=== PATIENT | male | born 1990 ===

== ENCOUNTER 2017-02-23 14:50 | Emergency (ER) | payer OTHER ==
[2017-02-23 15:12] VITALS: BP 129/70; PULSE 59; RESP 16; TEMP 96.9; O2SAT 98
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
--- NOTE | 2017-02-24 12:08 | RAD ---
PROCEDURE: Cervical Spine Radiographs. HISTORY: Pain. COMPARISON: None. FINDINGS: BONES: Alignment maintained. No fracture. Dens Intact. DISC SPACES: Normal. SOFT TISSUES: Normal. No prevertebral soft tissue swelling. OTHER FINDINGS: None. IMPRESSION: No acute findings related to/accounting for the clinical presentation. No preliminary report provided by emergency department personnel.
--- NOTE | 2017-02-24 16:00 | RAD ---
PROCEDURE: Radiographs of the Lumbar Spine. HISTORY: trauma COMPARISON: No prior. FINDINGS: BONES: Normal alignment. No listhesis. No fracture. DISC SPACES: Unremarkable. OTHER FINDINGS: None. IMPRESSION: Unremarkable radiographs of the lumbar spine.
--- NOTE | 2017-02-24 16:20 | RAD ---
HISTORY: trauma COMPARISON: No prior. FINDINGS: BONES: A limited dextroscoliotic thoracic spinal deformity is appreciate without fracture or suspicious lytic or blastic change. DISC SPACES: Normal. SOFT TISSUES: Normal. OTHER FINDINGS: None. IMPRESSION: Limited dextroscoliotic thoracic spinal deformity with normal kyphosis appreciated. No suspicious lytic or blastic change. No fracture identified.
== END 2017-02-23 16:49 | disposition home or self-care (01) ==
LOC: H.ER 14:50
DX: S09.90XA Unspecified injury of head, initial encounter (principal); S33.5XXA Sprain of ligaments of lumbar spine, initial encounter; W19.XXXA Unspecified fall, initial encounter; Y93.55 Activity, bike riding

== ENCOUNTER 2018-02-24 12:20 | Emergency (ER) | payer MEDICAID, OTHER ==
[2018-02-24 12:33] VITALS: BP 138/89; PULSE 78; RESP 18; TEMP 98; O2SAT 99
--- NOTE | 2018-02-24 13:32 | ED PDOC ---
Upper Extremity Pain/Injury Time Seen by Provider: 02/24/18 12:43 Chief Complaint (Nursing): Finger,Hand,&Wrist Chief Complaint (Provider): hand pain History Per: Patient Additional Complaint(s): 27 year old right hand dominant male presents to the ED for evaluation of bilateral hand cramping and pain for the past few months. He denies any trauma or injury, he denies any repetitive motion with hands. No meds taken for pain relief. No associated numbness or tingling. PMD: none Past Medical History Reviewed: Historical Data, Nursing Documentation, Vital Signs Vital Signs: Last Vital Signs Temp 98 F 02/24/18 12:30 Pulse 78 02/24/18 12:30 Resp 18 02/24/18 12:30 BP 138/89 02/24/18 12:30 Pulse Ox 99 02/24/18 12:30 - Medical History PMH: No Chronic Diseases - Surgical History Surgical History: No Surg Hx - Family History Family History: States: No Known Family Hx - Living Arrangements Living Arrangements: With Family - Social History Current smoker - smoking cessation education provided: No Alcohol: None Drugs: Denies - Home Medications Home Medications: Ambulatory Orders Medication Instructions Recorded Cyclobenzaprine [Cyclobenzaprine 10 mg PO Q8 PRN #30 tab 02/23/17 HCl] - Allergies Allergies/Adverse Reactions: Allergies Allergy/AdvReac Type Severity Reaction Status Date / Time No Known Allergies Allergy Verified 02/23/17 15:10 Review of Systems ROS Statement: Except As Marked, All Systems Reviewed And Found Negative Constitutional: Negative for: Fever, Chills Cardiovascular: Negative for: Chest Pain, Palpitations Respiratory: Negative for: Cough Gastrointestinal: Negative for: Nausea, Vomiting Musculoskeletal: Positive for: Hand Pain (b/l). Negative for: Neck Pain, Shoulder Pain, Arm Pain, Back Pain, Foot Pain Neurological: Negative for: Weakness, Numbness, Incoordination, Change in Speech , Headache, Dizziness Physical Exam - Reviewed Nursing Documentation Reviewed: Yes Vital Signs Reviewed: Yes - Physical Exam Appears: Positive for: Well, Non-toxic, No Acute Distress Head Exam: Positive for: NORMOCEPHALIC Skin: Positive for: Normal Color. Negative for: Rash Eye Exam: Positive for: Normal appearance Neck: Positive for: Normal. Negative for: Pain On Movement Of Neck Extremity: Positive for: Normal ROM (bilateral hands). Negative for: Tenderness , Deformity, Swelling Neurologic/Psych: Positive for: Alert, systems accountant II-XII (grossly intact), Oriented (x3 ). Negative for: Motor/Sensory Deficits, Aphasia, Facial Droop - ECG O2 Sat by Pulse Oximetry: 99 (RA) Pulse Ox Interpretation: Normal Medical Decision Making Medical Decision Making: Time: 1330 Initial Impression: 27 year old male with chronic bilateral hand pain Initial Plan: --Pain meds declined in ED --Patient to be d/c with a referral to follow up at [facility]. Advised NSAID's prn pain. Scribe Attestation: Documented by Chiquita Ho, acting as a scribe for Inez Contreras PA-C Provider Scribe Attestation: All medical record entries made by the Scribe were at my direction and personally dictated by me. I have reviewed the chart and agree that the record accurately reflects my personal performance of the history, physical exam, medical decision making, and the department course for this patient. I have also personally directed, reviewed, and agree with the discharge instructions and disposition. Disposition - Clinical Impression Clinical Impression: Hand pain - Patient ED Disposition Is Patient to be Admitted: No - Disposition Referrals: [facility] [Outside] Disposition: Routine/Home Disposition Time: 13:31 Condition: STABLE Additional Instructions: Take over the counter motrin or tylenol as needed for pain. Follow up with clinic for further evaluation. Instructions: Muscle and Bone Pain (DC), Hand Pain (DC) Forms: [employer] (Palauan)
== END 2018-02-24 13:48 | disposition home or self-care (01) ==
LOC: H.ER 12:20
DX: M79.642 Pain in left hand (principal); M79.641 Pain in right hand